=== PATIENT | female | born 1970 | race Caucasian/White ===

== ENCOUNTER 2020-12-23 21:09 | Emergency (ER) | payer MEDICAID ==
[~2020-12-23] VITALS: Ht 152.4 cm; Wt 71.0 kg
[2020-12-23] MEDS ORDERED: ACETAMINOPHEN 325MG TABLET PO ONE (21:45)
[2020-12-23 22:12] LABS: BASOPHILS % 0.4 % (0.0-2.0); EOSINOPHILS % 1.9 % (0.0-5.0); HEMATOCRIT. 34.5 % (36.0-48.0); HEMOGLOBIN. 11.3 g/dL (12.0-16.0); LYMPHOCYTES % 22.4 % (20.0-50.0); MEAN CORPUSCULAR HEMOGLOBIN 27.4 pg (28.0-32.0); MEAN CORPUSCULAR VOLUME 83.5 fL (81.0-99.0); MEAN PLATELET VOLUME 9.2 fl (7.4-10.4); MONOCYTES % 10.1 % (2.0-8.0); NEUTROPHILS % 65.2 % (40.0-76.0); PLATELET 214 x1000/uL (130-400); RED BLOOD CELL COUNT 4.13 mill/uL (4.2-5.4); RED CELL DISTRIBUTION WIDTH 17.1 % (11.6-14.6)
[2020-12-23 22:16] LABS: CHLORIDE 108 mEq/L (98-107)
[2020-12-23] MEDS ORDERED: DIPHENHYDRAMINE 50MG CAPSULE PO ONE (22:30)
[2020-12-23] MEDS ORDERED: PREDNISONE 20MG TABLET PO ONE (22:30)
[2020-12-24] MEDS ORDERED: DIPH25CA83 MT (01:10)
[2020-12-24] MEDS ORDERED: HYDR28OI2 TP (01:10)
[2020-12-24 01:15] VITALS: BP 149/74
== END 2020-12-24 01:15 | disposition home or self-care (01) ==
LOC: ER 21:09
DX: L30.9 Dermatitis, unspecified (principal); I10 Essential (primary) hypertension
CPT/HCPCS: 36415; 80053; 85025; 93005; 93970; 99285; J7512; Q0163